=== PATIENT | female | born 1980 | race Caucasian/White ===

== ENCOUNTER 2016-10-01 10:37 | Emergency (ER) | payer OTHER ==
[2016-10-01 10:54] VITALS: BP 116/72; PULSE 88; RESP 18; O2SAT 100
--- NOTE | 2016-10-01 12:04 | ED.REPORT ---
HPI-Dental/Mouth Prob Date of Service Oct 01, 2016 ED Provider: Norma Sharma Nursing Notes Stated Complaint: TOOTH PAIN Chief Complaint: Dental General Time Seen by MD: 12:03 Physical Exam Initial Vital Signs Vital Signs (First) Date Time Temp Pulse Resp B/P Pulse Ox O2 Delivery O2 Flow Rate FiO2 10/01/16 10:54 37.4 88 18 116/72 100 Room Air Discharge & Departure Referrals: NOPCP (PCP) Norma Sharma Oct 01, 2016 12:04
== END 2016-10-01 12:15 | disposition left against medical advice (07) ==
LOC: SED 10:37
DX: Z53.21 Procedure and treatment not carried out due to patient leaving prior to being seen by health care provider (principal)